=== PATIENT | male | born 1955 | race Caucasian/White ===

== ENCOUNTER 2017-05-30 06:58 | Day surgery (SDC) | payer BC ==
[~2017-05-30] VITALS: Ht 188 cm; Wt 102.0 kg
[~2017-05-30 06:58] MED LIST: ATROVENT 00.5 MG/2.5 IH; GLUCOPHAGE XR,500 MG PO; LIPITOR40 MG PO; LO-DOSE ASPIRIN81 M1 PO; LOTREL 5/201 CAPSULE PO; MULTIPLE VITAM1 EACH PO; OMEGA 3 500 SO1 EACH PO; PRILOSEC20 MG PO; PROAIR RESPICL90 MCG IH
[2017-05-30 07:48] LABS: POINT-OF-CARE METER ID UU14174212
[2017-05-30 07:57] VITALS: BP 150/75
[2017-05-30] MEDS ORDERED: NORCO 5/3251 TABLET PO (11:19)
[2017-05-30 11:35] LABS: POINT-OF-CARE METER ID UU13113675
[2017-05-30 13:20] VITALS: BP 134/65
[2017-05-30 14:31] VITALS: BP 137/65
== END 2017-05-30 14:30 | disposition home or self-care (01) ==
LOC: SDC 06:58
PROVIDERS: Surgery
DX: K80.10 Calculus of gallbladder with chronic cholecystitis without obstruction (principal); Z86.19 Personal history of other infectious and parasitic diseases; R16.1 Splenomegaly, not elsewhere classified; I10 Essential (primary) hypertension; E11.9 Type 2 diabetes mellitus without complications; I25.10 Atherosclerotic heart disease of native coronary artery without angina pectoris; I34.1 Nonrheumatic mitral (valve) prolapse; J44.9 Chronic obstructive pulmonary disease, unspecified; E78.4 Other hyperlipidemia; Z86.010 Personal history of colon polyps; K21.9 Gastro-esophageal reflux disease without esophagitis; K22.70 Barrett's esophagus without dysplasia; E66.9 Obesity, unspecified; Z68.30 Body mass index [BMI] 30.0-30.9, adult; Z79.84 Long term (current) use of oral hypoglycemic drugs; Z82.49 Family history of ischemic heart disease and other diseases of the circulatory system
CPT/HCPCS: 74300; 80048; 82948; 85027; 88304; 93005; J0330; J1170; J2250; J2405; J2710; J3010; S0020